=== PATIENT | male | born 1950 | race Caucasian/White ===

== ENCOUNTER 2016-03-23 07:07 | Emergency (ER) | payer BC ==
[~2016-03-23] VITALS: Ht 182.9 cm; Wt 112.0 kg
[2016-03-23 07:16] VITALS: BP 148/89; PULSE 78; RESP 18; TEMP 98.8; O2SAT 97
[2016-03-23] MEDS ORDERED: NAPR220T95 PO (07:50)
[2016-03-23] MEDS ORDERED: ASPI1TAB69 PO (07:50)
--- NOTE | 2016-03-23 08:14 | PD ---
HPI Chief Complaint: Pain: Acute or Chronic Time Seen by Provider: 08:00 Travel History International Travel<30 days: No Contact w/Intl Traveler<30days: No Traveled to known affect area: No History of Present Illness HPI 65-year-old male with history of gouty arthritis, presents to the ER with a one- week history of left ankle pain that has now traveled to his foot, worse with movement and weightbearing. He states it has been swollen. He denies any injury or any other issues. He states he has had gouty arthritis in some of the same areas in the past. He states that it goes to different spots. He had been on colchicine in the past but is no longer on it now. He denies any fevers or any other issues. Modifying Factors: None Associated Signs & Symptoms: Left ankle pain Risk Factors: Gouty arthritis history PFSH Past Medical History Diminished Hearing: No Gout: Yes Influenza Vaccination: No ?: Not Past Surgical History Abdominal Surgery: Yes (LEFT INGUINAL HERNIA) Social History Alcohol Use: Yes (BEER) Tobacco Use: No Allergies-Medications (Allergen,Severity, Reaction): Coded Allergies: Penicillin (Verified Allergy, Severe, 03/23/16) Reported Meds & Prescriptions Reported Meds & Active Scripts Active Reported Aspirin 81 Mg Tabdr 81 Mg PO DAILY Aleve (Naproxen Sodium) 220 Mg Tab 220 Mg PO BID PRN Review of Systems Except as stated in HPI: all other systems reviewed are Neg Physical Exam Narrative GENERAL: Well-nourished, well-developed elderly white male patient in no acute distress. SKIN: Warm and dry. HEAD: Normocephalic. NECK: Supple, trachea midline. Left ankle: There is notable joint effusion with no significant erythema, no bony tenderness, neurovascularly intact. Only mildly tender palpation of the ankle and upper foot area. No underlying fluctuance. Data Data Last Documented VS Vital Signs Date Time Temp Pulse Resp B/P Pulse Ox O2 Delivery O2 Flow Rate FiO2 03/23/16 07:16 98.8 78 18 148/89 97 Room Air Orders Ankle, Complete ([id number]) (03/23/16 08:01) Foot, Complete (Hzo9ara) (03/23/16 08:01) Indomethacin (Indocin) (03/23/16 08:15) Indomethacin (Indocin) (03/23/16 08:15) MDM Medical Decision Making Medical Screen Exam Complete: Yes Emergency Medical Condition: Yes Medical Record Reviewed: Yes Interpretation(s) Last 24 hours Impressions Foot X-Ray 03/23/16 08 Signed Impressions: Service Date/Time: Wednesday, March 23, 2016 08:30 - CONCLUSION: 1. Calcaneal spur otherwise negative Bola Riley MD Ankle X-Ray 03/23/16 0801 Signed Impressions: Service Date/Time: Wednesday, March 23, 2016 08:26 - CONCLUSION: 1. Calcaneal spur. There is no evidence of acute fracture. Bola Riley MD Differential Diagnosis Ankle and foot paingouty arthritis versus osteoarthritis versus tendinitis versus sprain Narrative Course X-rays did not reveal any signs of acute fractures or other acute bony processes. Patient has known history of gouty arthritis in his suspect that this is an acute exacerbation. My plan would be to treat him for acute exacerbation of gouty arthritis. Follow-up with primary care physician. Return for any worsening in symptoms as necessary. The plan has been discussed with the patient and he states understanding. Diagnosis Primary Impression: Acute gouty arthritis Med/Other Pt SpecificInfo: Prescription(s) given Scripts Indomethacin 50 Mg Cap50 Mg PO TID PRN (PAIN SCALE 1 TO 10) #20 CAP Ref 0 Take with food, milk, or antacids to decrease stomach adverse effects. Prov:Jatin Leos MD 03/23/16 Colchicine 0.6 Mg Cap0.6 Mg PO BID #14 CAP Ref 0 Prov:Jatin Leos MD 03/23/16 Disposition: 01 DISCHARGE HOME Condition: Stable Jatin Leos MD Mar 23, 2016 08:14
[2016-03-23] MEDS ORDERED: INDOMETHACIN 50 MG CAP PO ONE (08:15)
[2016-03-23] MEDS ORDERED: INDOMETHACIN 25 MG CAP PO ONE (08:15)
--- NOTE | 2016-03-23 08:46 | RADHPO ---
EXAM DATE/TIME: 03/23/2016 08:26 [facility] COMPARISON: No previous studies available for comparison. INDICATIONS : Left ankle pain and swelling, no known injury. MEDICAL HISTORY : None. SURGICAL HISTORY : None. ENCOUNTER: Initial ACUITY: 3 days PAIN SCORE: 6/10 LOCATION: Left ankle FINDINGS: There is no evidence of acute fracture. Bony mineralization is normal. An inferior calcaneal spur is present. Joint spaces are maintained. CONCLUSION: 1. Calcaneal spur. There is no evidence of acute fracture. Bola Riley MD on March 23, 2016 at 8:44 Board Certified Radiologist. This report was verified electronically.
--- NOTE | 2016-03-23 08:47 | RADHPO ---
EXAM DATE/TIME: 03/23/2016 08:30 [facility] COMPARISON: No previous studies available for comparison. INDICATIONS : Left foot pain and swelling, no known injury. MEDICAL HISTORY : None. SURGICAL HISTORY : None. ENCOUNTER: Initial ACUITY: 3 days PAIN SCORE: 6/10 LOCATION: Left foot FINDINGS: Three view examination of the left foot demonstrates no soft tissue swelling, dislocation, or fractur e. The tarsal bones appear intact. The interphalangeal and metatarsophalangeal joints are intact. The calcaneus is intact. Bony mineralization is normal. An inferior calcaneal spur is present. CONCLUSION: 1. Calcaneal spur otherwise negative Bola Riley MD on March 23, 2016 at 8:45 Board Certified Radiologist. This report was verified electronically.
[2016-03-23] MEDS ORDERED: COLC1CAP3 PO (08:59)
[2016-03-23] MEDS ORDERED: INDO50CA PO (08:59)
== END 2016-03-23 09:20 | disposition home or self-care (01) ==
LOC: PHED 07:07 → PHEFT 09:20
DX: M10.00 Idiopathic gout, unspecified site (principal)
CPT/HCPCS: 73610; 73630; 99283